=== PATIENT | male | born 1930 | race Caucasian/White ===

== ENCOUNTER 2017-10-12 09:41 | Inpatient (IN) | payer OTHER ==
[~2017-10-12] VITALS: Ht 182.9 cm; Wt 71.4 kg
[2017-10-12 09:57] VITALS: Ht 182.9 cm; Wt 71.4 kg
[2017-10-12] MEDS ORDERED: RENAL CAPS1 SGL PO (10:36)
[2017-10-12] MEDS ORDERED: ALLOPURINOL100 MG PO (10:36)
[2017-10-12] MEDS ORDERED: PHOSLO667 MG PO (10:37)
[2017-10-12 10:53] LABS: BASOPHIL % 0.3 % (0-2)
[2017-10-12 11:05] LABS: ALKALINE PHOSPHATASE 66 U/L (46-116); ALT/SGPT 14 U/L (16-63); AST/SGOT 46 U/L (15-37); BILIRUBIN TOTAL 0.61 mg/dL (0.20-1.00); CARBON DIOXIDE 25.3 mmol/L (21-32); CHLORIDE SERUM 102 mmol/L (98-107); GLUCOSE SERUM 75 mg/dL (74-106); POTASSIUM SERUM 4.6 mmol/L (3.5-5.1); SODIUM SERUM 142 mmol/L (136-145); TOTAL PROTEIN, SERUM 6.3 g/dL (6.4-8.2)
[2017-10-12 11:06] LABS: PLATELET COUNT 94 x10^3mcL (130-400); RED CELL DISTRIBUTION WIDTH 17.6 % (11.5-14.5)
[2017-10-12 11:14] LABS: ALBUMIN 1.8 g/dL (3.4-5.0)
[2017-10-12 11:15] LABS: CREATININE SERUM 7.3 mg/dL (0.7-1.3)
[2017-10-12 12:51] LABS: T3 TOTAL 0.37 ng/mL
[2017-10-12 12:56] LABS: FREE T4 0.96 ng/dL (0.76-1.46)
[2017-10-12 13:20] LABS: FREE THYROXINE INDEX 1.4 ug/dL (1.4-4.5); T4(THYROXINE) 3.3 ug/dL (4.7-13.3)
[2017-10-12 14:03] VITALS: BP 145/63
[2017-10-12 14:46] LABS: PHOSPHOROUS 6.4 mg/dL (2.5-4.9)
[2017-10-12 14:51] VITALS: BP 145/63
[2017-10-12 14:51] LABS: CHOLESTEROL/HDL RATIO 3.2
[2017-10-12 16:52] LABS: RED BLOOD CELLS 2.64 M/mm3 (4.52-5.90)
[2017-10-12 17:25] VITALS: BP 102/60
[2017-10-12 21:32] VITALS: BP 141/63
[2017-10-13 05:40] VITALS: BP 138/61
[2017-10-13 09:17] VITALS: BP 140/60
[2017-10-13 12:29] VITALS: BP 143/62
[2017-10-13 16:43] VITALS: BP 146/60
[2017-10-13 21:02] VITALS: BP 114/52
[2017-10-14 05:25] VITALS: BP 125/61
[2017-10-14 08:19] VITALS: BP 133/53
[2017-10-14] MEDS ORDERED: ZOFI IV (10:24)
[2017-10-14] MEDS ORDERED: DIL2 PO (10:24)
[2017-10-14 12:49] VITALS: BP 133/53
[2017-10-14 13:20] VITALS: BP 133/53
[2017-10-14 13:36] VITALS: BP 120/52
== END 2017-10-14 14:44 | disposition hospice, home (50) | DRG 840 ==
LOC: ED 09:41 → DU 11:15
PROVIDERS: Emergency Medicine; Family Medicine
DX: C90.00 Multiple myeloma not having achieved remission (principal); N18.6 End stage renal disease; I50.43 Acute on chronic combined systolic (congestive) and diastolic (congestive) heart failure; N17.0 Acute kidney failure with tubular necrosis; E43 Unspecified severe protein-calorie malnutrition; M84.421A Pathological fracture, right humerus, initial encounter for fracture; J90 Pleural effusion, not elsewhere classified; D61.818 Other pancytopenia; Z68.1 Body mass index [BMI] 19.9 or less, adult; Z88.0 Allergy status to penicillin; M10.9 Gout, unspecified; Z99.2 Dependence on renal dialysis; M54.5 Low back pain; M89.9 Disorder of bone, unspecified; E83.52 Hypercalcemia; E83.39 Other disorders of phosphorus metabolism; K57.90 Diverticulosis of intestine, part unspecified, without perforation or abscess without bleeding; Z66 Do not resuscitate
CPT/HCPCS: 83880; 84439; 87804; 94150; J1956; J2270; J3490; J7620; Q0092